=== PATIENT | female | born 1970 | race American Indian/Alaskan Native ===

== ENCOUNTER 2016-06-12 19:49 | Emergency (ER) | payer MEDICAID ==
[~2016-06-12] VITALS: Ht 172.7 cm; Wt 123.9 kg
[2016-06-12 19:51] VITALS: BP 146/79
[2016-06-12] MEDS ORDERED: IBUPROFEN 200 MG TABLET PO ONE (20:00)
[2016-06-12] MEDS ORDERED: IBUPROFEN 200 MG TABLET ONE (20:55)
== END 2016-06-12 21:32 | disposition home or self-care (01) ==
LOC: ED 21:29
DX: S93.491A Sprain of other ligament of right ankle, initial encounter (principal); X58.XXXA Exposure to other specified factors, initial encounter; Y93.89 Activity, other specified; Y92.009 Unspecified place in unspecified non-institutional (private) residence as the place of occurrence of the external cause; Y99.9 Unspecified external cause status
CPT/HCPCS: 99284

== ENCOUNTER 2017-05-13 08:44 | Emergency (ER) | payer MEDICAID ==
[~2017-05-13] VITALS: Ht 172.7 cm; Wt 108.9 kg
[2017-05-13] MEDS ORDERED: SODIUM CHLORIDE FLUSH 10ML SYR IVF ONE (09:30)
[2017-05-13] MEDS ORDERED: HYDROCORTISONE 25 MG SUPP PR ONE (09:30)
[2017-05-13] MEDS ORDERED: HYDROmorphone 1 MG/ML, 1ML IVPush PRN (09:30)
[2017-05-13] MEDS ORDERED: LIDOCAINE-MPF 2% ,5ML ONE (09:30)
[2017-05-13] MEDS ORDERED: LORazepam 2 MG/ML, 1ML IVPush ONE (09:30)
[2017-05-13] MEDS ORDERED: LIDOCAINE 2%, 20ML SQ ONE (09:30)
[2017-05-13] MEDS ORDERED: SODIUM CHLORIDE 0.9% 1,000ML IVBOLUS ONE (09:30)
[2017-05-13] MEDS ORDERED: LIDOCAINE 4% CREAM TP ONE (09:30)
[2017-05-13] MEDS ORDERED: LORazepam 2 MG/ML, 1ML ONE (09:38)
[2017-05-13] MEDS ORDERED: HYDROmorphone 2 MG/ML, 1ML ONE (10:22)
[2017-05-13 10:55] VITALS: BP 111/72
== END 2017-05-13 12:04 | disposition home or self-care (01) ==
LOC: ED 09:24
DX: K64.4 Residual hemorrhoidal skin tags (principal)
CPT/HCPCS: 46083; 96361; 96374; 96375; 99284; J1170; J2060; J7030

== ENCOUNTER 2020-01-30 07:45 | Emergency (ER) | payer MEDICAID ==
[~2020-01-30] VITALS: Ht 172.7 cm; Wt 101.9 kg
[2020-01-30 07:48] VITALS: BP 122/87
--- NOTE | 2020-01-30 08:06 | NUR ---
PT PRESENTED TO ED D/T FEVER, CHILLS, N/V, AND BODYACHES SINCE WEDNESDAY. PT'S SON ALSO AT BEDSIDE D/T SAME SYMPTOMS.
--- NOTE | 2020-01-30 08:48 | NUR ---
PT DISCHARGED HOME TO QUARANTINE IN STABLE CONDITIO. DC INSTRUCTIONS DISCUSSED WITH PT. PT VERBALIZED UNDERSTANDING. NO FURTHER QUESTIONS OR CONCERNS EXPRESSED AT THAT TIME. PT AMBULATED WITH SON WITH A STEADY GAIT.
== END 2020-01-30 08:50 | disposition home or self-care (01) ==
LOC: ED 08:01
DX: B34.9 Viral infection, unspecified (principal); J02.9 Acute pharyngitis, unspecified; R09.81 Nasal congestion; M79.10 Myalgia, unspecified site
CPT/HCPCS: 87635; 99282; 99283

== ENCOUNTER 2020-02-12 08:03 | Emergency (ER) | payer MEDICAID ==
[~2020-02-12] VITALS: Ht 172.7 cm; Wt 100.8 kg
--- NOTE | 2020-02-12 08:11 | NUR ---
NO ANSWER FROM TRIAGE
[2020-02-12 08:23] VITALS: BP 124/92
--- NOTE | 2020-02-12 10:34 | NUR ---
no answer in lobby
--- NOTE | 2020-02-12 10:54 | NUR ---
NO ANSWER IN LOBBY
== END 2020-02-12 10:57 | disposition left against medical advice (07) ==
LOC: ED 10:52
DX: R50.9 Fever, unspecified (principal); Z53.21 Procedure and treatment not carried out due to patient leaving prior to being seen by health care provider